=== PATIENT | male | born 1960 | race Caucasian/White ===

== ENCOUNTER 2020-08-27 20:23 | Emergency (ER) | payer BC ==
[2020-08-27] MEDS ORDERED: Lidocaine 2% 10 ML Amp INJECT ONE (20:31)
--- NOTE | 2020-08-28 00:54 | EDM.PDOC ---
ED HPI GENERAL MEDICAL PROBLEM - General Chief Complaint: General Stated Complaint: FISH HOOK IN LEFT THUMB Time Seen by Provider: 08/27/20 20:31 Source of Information: Reports: Patient History Limitations: Reports: No Limitations - History of Present Illness INITIAL COMMENTS - FREE TEXT/NARRATIVE: Pt. states that he was attempting to help his brother hand a fish on [facility] when he got a treble hook stuck in his L thumb. Pt. states that this happened shortly before arrival to ER. His tetanus is up to date. He denies any injury elsewhere. Onset Date: 08/27/20 Location: Reports: Upper Extremity, Left Quality: Reports: Sharp Left Thumb Pain Score (Numeric/FACES): 1 - Related Data Allergies Allergy/AdvReac Type Severity Reaction Status Date / Time No Known Allergies Allergy Verified 08/27/20 22:58 Home Meds: Home Meds . [No Known Home Meds] 08/27/20 [History] Social & Family History - Tobacco Use Tobacco Use Status *Q: Current Every Day Tobacco User Years of Tobacco use: 30 Packs/Tins Daily: 0.5 - Recreational Drug Use Recreational Drug Use: No ED ROS GENERAL - Review of Systems Review Of Systems: Comprehensive ROS is negative, except as noted in HPI. ED EXAM, GENERAL - Physical Exam Exam: See Below Exam Limited By: No Limitations General Appearance: Alert, WD/WN, No Apparent Distress Extremities: Other (Single hans or treble hook stuck in pad of R thumb. It enters into the thumb almost perpendicularly and is in past the hans.) ED GENERAL MEDICAL PROCEDURES - Additional/Other Procedure(s) Other (Free Text) Procedure(s): Pt. hand was soaked in normal saline with clorhexidine. The treble hook was cut with side cutters so only a single hook was in the finger to facilitate easier removal. The area around the hook was anesthetized with 2 ml of 2% lidocaine. The hook was pulled directly out with hemostats with minimal problems. The entry point was further cleansed with chlorhexidine and normal saline and left open to air. Course - Vital Signs Last Recorded V/S: Last Vital Signs Temp 36.5 C 08/27/20 20:40 Pulse 76 08/27/20 20:40 Resp 15 08/27/20 20:40 BP 139/91 H 08/27/20 20:40 Pulse Ox 96 08/27/20 20:40 - Orders/Labs/Meds Meds: Medications Discontinued Medications Generic Name Dose Route Start Last Admin Trade Name Lis PRN Reason Stop Dose Admin Lidocaine HCl 10 ml 08/27/20 20:31 08/27/20 20:33 Lidocaine 2% 10 Ml Amp INJECT 08/27/20 20:32 10 ml ONETIME ONE Administration Departure - Departure Time of Disposition: 21:10 Disposition: Home, Self-Care 01 Clinical Impression: Fish hook injury of finger - Discharge Information Instructions: Hand or Foot Foreign Body, Adult Referrals: PCP,Not In Area [Primary Care Provider] - Forms: ED Department Discharge Additional Instructions: Keep open to air as much as possible. Wear a bandaid if you anticipate getting the area dirty. Tetanus is up to date. No antibiotics are needed. Return/follow-up in clinic if you notice any redness, swelling or discharge from the area. Sepsis Event Note (ED) - Evaluation Sepsis Screening Result: No Definite Risk - Focused Exam Vital Signs: Vital Signs Temp Pulse Resp BP Pulse Ox 08/27/20 20:40 36.5 C 76 15 139/91 H 96 - Problem List Review Problem List Initiated/Reviewed/Updated: Yes - Assessment/Plan Plan: Keep open to air as much as possible. Wear a bandaid if you anticipate getting the area dirty. Tetanus is up to date. No antibiotics are needed. Return/follow-up in clinic if you notice any redness, swelling or discharge from the area.
== END 2020-08-27 20:54 | disposition home or self-care (01) ==
LOC: VM.ED 20:23
DX: S60.352A Superficial foreign body of left thumb, initial encounter (principal); Z72.0 Tobacco use; W45.8XXA Other foreign body or object entering through skin, initial encounter
CPT/HCPCS: 99283